=== PATIENT | female | born 1960 | race African-American/Black ===

== ENCOUNTER 2020-02-14 10:28 | Inpatient (IN) | payer MEDICARE ==
[~2020-02-14] VITALS: Ht 175.3 cm; Wt 134.3 kg
[~2020-02-14 10:28] MED LIST: ACETAMINOPHEN325 M1 PO; ARTIFICIAL TEAR15 M1 OPHTHALMIC; EUCERIN CREME57 GM; LOTREL 10-20 M1 EACH PO; VANCOMYCIN PO; ZANTAC 150MG T150 MG PO
[2020-02-14 10:40] VITALS: BP 138/88
[2020-02-14 11:09] LABS: ABSOLUTE EOSINOPHILS 0.1 thou/uL (0.0-0.7); ABSOLUTE LYMPHOCYTES 1.7 thou/uL (0.8-5.3); ABSOLUTE MONOCYTES 0.5 thou/uL (0.0-1.2); ABSOLUTE NEUTROPHILS 5.8 thou/uL (1.6-8.1); BASOPHILS 0.5 %; EOSINOPHILS 0.8 %; HEMATOCRIT 41.1 % (37.0-47.0); HEMOGLOBIN 13.7 gm/dL (12.0-15.0); LYMPHOCYTES 21.1 %; MCH 28.7 pg (26.0-34.0); MCHC 33.3 g/dL (28.0-37.0); MCV 86.1 fL (80.0-100.0); MONOCYTES 6.7 %; MPV 7.7 fl. (7.2-11.1); NUCLEATED RBCS 0 /100WBC; PLATELET COUNT* 303 thou/uL (150-400); POLYS 70.9 %; RBC 4.77 mil/uL (4.20-5.00); RDW-CV 15.2 % (10.5-14.5); WBC 8.1 thou/uL (4.0-11.0)
[2020-02-14 11:20] LABS: CALCIUM 8.5 mg/dL (8.5-10.1); CREATININE 0.9 mg/dL (0.6-1.3); POTASSIUM 4.1 mmol/L (3.5-5.1)
[2020-02-14 11:24] LABS: ALBUMIN 3.5 g/dL (3.4-5.0); TOTAL BILIRUBIN 0.3 mg/dL (<0.1-1.0); TOTAL PROTEIN 7.8 g/dL (6.4-8.2)
[2020-02-14] MEDS ORDERED: ROBITUSSIN15 MG/5 ML PO (12:00)
[2020-02-14] MEDS ORDERED: OMEPRAZOLE 20 M20 M1 PO (12:00)
[2020-02-14] MEDS ORDERED: TESSALON PERLE100 MG PO (12:00)
[2020-02-14] MEDS ORDERED: SINGULAIR 10 MG10 M1 PO (12:00)
[2020-02-14] MEDS ORDERED: NEURONTIN 300M300 M2 PO (12:00)
[2020-02-14] MEDS ORDERED: PROAIR HFA8.5 GM INH (12:01)
[2020-02-14] MEDS ORDERED: SYMBICORT160 MCG/4. INH (12:01)
[2020-02-14] MEDS ORDERED: GENTEAL TEARS 015 M1 (12:01)
[2020-02-14] MEDS ORDERED: VITAMIN D21250 MC1 PO (12:01)
[2020-02-14] MEDS ORDERED: SUPER MULTIPLE1 EACH PO (12:02)
[2020-02-14 12:16] LABS: URINE BILIRUBIN NEGATIVE (Negative); URINE BLOOD NEGATIVE (Negative); URINE CLARITY CLEAR; URINE COLOR YELLOW; URINE GLUCOSE-RANDOM NEGATIVE (Negative); URINE KETONES NEGATIVE (Negative); URINE LEUKOCYTES-REFLEX NEGATIVE (Negative); URINE NITRITE-REFLEX NEGATIVE (Negative); URINE PROTEIN NEGATIVE (Negative); URINE UROBILINOGEN 0.2 E.U./dl (0.2-1.0)
[2020-02-14 12:22] VITALS: BP 155/78
[2020-02-14 12:28] LABS: ESR (SEDRATE) 20 mm/hr (0-30)
[2020-02-14 12:37] LABS: INFLUENZA A ANTIGEN Negative (Negative); INFLUENZA B ANTIGEN Negative (Negative)
[2020-02-14 15:14] VITALS: BP 134/80
[2020-02-14 15:14] LABS: CHOLESTEROL 229 mg/dL (<200); HDL CHOLESTEROL 56 mg/dL (>40); LDL CHOLESTEROL 161 mg/dL (<100); SERUM ASSESSMENT Clear; TC:HDL 4.1 Ratio (Not establshd); TRIGLYCERIDE 61 mg/dL (<150); VLDL 12 mg/dL (<40)
[2020-02-14 15:17] LABS: AMP/METHAMP Negative (Negative); BARBITURATES Negative (Negative); BENZODIAZEPINES Negative (Negative); COCAINE Negative (Negative); METHADONE Negative (Negative); OPIATES Negative (Negative); PCP Negative (Negative); THC Negative (Negative)
[2020-02-14 15:34] VITALS: BP 158/87
--- NOTE | 2020-02-14 15:40 | EKG ---
[place] [address] ELECTROCARDIOGRAM REPORT Name: GLADYS MARQUEZ Room: [address] [place] .R.#: [id number] Admission: 02/14/20 Attend Phys: Celena grant Sa Discharge: Date of : 60 Date of Service: 02/14/20 1125 Report #: [id number] THIS REPORT FOR: //name// [facility] ED Test Date: 2020-02-14 Test Time: 11:25:47 Pat Name: GLADYS MARQUEZ Department: Room: [facility] Gender: F Coat Padder: [facility] : 1960 Requested By: Kaitlin Garcia Order Number: [id number] MD: Johann Mccallum Measurements Intervals Mcintosh Rate: 66 P: -1 DC: 193 QRS: 45 QRSD: 82 T: 44 QT: 392 QTc: 411 Interpretive Statements Sinus rhythm Baseline wander in lead(s) V5 Compared to ECG 12/04/2013 09:14:02 No significant changes Electronically Signed On 02-14-2020 15:39:17 CDT by Johann Mccallum [email or web address] <ELECTRONICALLY SIGNED> By: Johann Mccallum MD, [facility] 02/14/20 1539 1125 1125 Johann Mccallum MD, [facility] /EPI
[2020-02-14] MEDS ORDERED: GUAIFEN-CODEINE10 ML PO (15:50)
[2020-02-14 20:00] VITALS: BP 155/80
[2020-02-15 00:12] VITALS: BP 135/79
[2020-02-15 02:07] LABS: GLYCOHEMOGLOBIN (HGB A1C) 5.6 % (4.8-5.6)
[2020-02-15 04:13] VITALS: BP 142/83
[2020-02-15 05:35] LABS: HEMATOCRIT 38.4 % (37.0-47.0); HEMOGLOBIN 12.4 gm/dL (12.0-15.0); MCH 28.1 pg (26.0-34.0); MCHC 32.3 g/dL (28.0-37.0); MCV 86.8 fL (80.0-100.0); RBC 4.42 mil/uL (4.20-5.00); RDW-CV 15.6 % (10.5-14.5); WBC 8.1 thou/uL (4.0-11.0)
[2020-02-15 05:42] LABS: ALBUMIN 3.1 g/dL (3.4-5.0); CALCIUM 8.1 mg/dL (8.5-10.1); CREATININE 0.8 mg/dL (0.6-1.3); MAGNESIUM 2.2 mg/dL (1.8-2.4); PHOSPHORUS* 2.9 mg/dL (2.5-4.9); POTASSIUM 4.5 mmol/L (3.5-5.1)
[2020-02-15 08:00] VITALS: BP 144/74
[2020-02-15 12:22] VITALS: BP 149/77
--- NOTE | 2020-02-15 13:08 | 2DMMODE ---
[place] [address] 2 D/M-MODE ECHOCARDIOGRAM Name: GLADYS MARQUEZ Room: [address] [place] Kelly#: [id number] Admission: 02/14/20 Attend Phys: Celena grant Sa Discharge: Date of : 60 Date of Service: 02/15/20 1307 Report #: [id number] THIS REPORT FOR: cc: JODIE - Belkis family physician/PCP JODIE - Belkis family physician/PCP Johann Mccallum MD [facility] ~ APPROVED REPORT Study performed: 02/15/2020 09:34:05 EXAM: Comprehensive 2D, Doppler, and color-flow Echocardiogram Patient Location: In-Patient Room #: 224 Status: routine BSA: 2.39 HR: 74 bpm BP: 142/83 mmHg Rhythm: NSR Other Information Study Quality: Good Indications CVA/TIA Echo Enhancing Agent Indication: Rule out Shunt Agent(s) / Amount(s) Used: Agitated Saline 10 cc 2D Dimensions IVSd: 11.58 (7-11mm) LVOT Diam: 21.88 (18-24mm) LVDd: 39.41 mm PWd: 9.46 (7-11mm) Ascending Ao: 28.10 (22-36mm) LVDs: 22.96 (25-40mm) Aortic Root: 34.88 mm Volumes Left Atrial Volume (Systole) LA ESV Index: 18.20 mL/m2 Aortic Valve AoV Peak Jose.: 1.25 m/s AO Peak Gr.: 6.22 mmHg LVOT Max P.25 mmHg AO Mean Gr.: 3.04 mmHg LVOT Mean P.33 [place] [address] 2 D/M-MODE ECHOCARDIOGRAM Name: GLADYS MARQUEZ Room: [address] [place] M.R.#: [id number] Admission: 02/14/20 Attend Phys: Celena grant Sa Discharge: Date of : 60 Date of Service: 02/15/20 1307 Report #: [id number] LVOT Max V: 1.15 m/s AO V2 VTI: 23.98 cm LVOT Mean V: 0.69 m/s CAMILA (VTI): 3.80 cm2 LVOT V1 VTI: 24.23 cm Mitral Valve E/A Ratio: 0.87 MV Decel. Time: 252.78 ms MV E Max Jose.: 0.67 m/s MV PHT: 73.31 ms MVA (PHT): 3.00 cm2 TDI E/Lateral E': 5.58 E/Medial E': 6.09 Medial E' Jose.: 0.11 m/s Lateral E' Jose.: 0.12 m/s Pulmonary Valve PV Peak Jose.: 0.90 m/s PV Peak Gr.: 3.27 mmHg Left Ventricle The left ventricle is normal size. There is normal LV segmental wall motion. There is normal left ventricular wall thickness. Left ventricular systolic function is normal. The left ventricular ejection fraction is within the normal range. LVEF is 60-65%. Grade I - abnormal relaxation pattern. Right Ventricle The right ventricle is normal size. The right ventricular systolic function is normal. Atria The left atrium size is normal. Bubble study revealed no shunting of the microcavitations. The right atrium size is normal. Aortic Valve The aortic valve is normal in structure. No aortic regurgitation is present. There is no aortic valvular stenosis. Mitral Valve The mitral valve is normal in structure. Trace mitral regurgitation. No evidence of mitral valve stenosis. Tricuspid Valve The tricuspid valve is normal in structure. Trace tricuspid regurgitation. [place] [address] 2 D/M-MODE ECHOCARDIOGRAM Name: ALMAGLADYS Renea Room: [address] [place] .#: [id number] Admission: 02/14/20 Attend Phys: Celena grant Sa Discharge: Date of : 60 Date of Service: 02/15/20 1307 Report #: [id number] Pulmonic Valve The pulmonary valve is normal in structure. Trace pulmonic regurgitation. Great Vessels The aortic root is normal in size. IVC is normal in size and collapses >50% with inspiration. Pericardium There is no pericardial effusion. <Conclusion> The left ventricle is normal size. There is normal left ventricular wall thickness. Left ventricular systolic function is normal. The left ventricular ejection fraction is within the normal range. LVEF is 60-65%. Grade I - abnormal relaxation pattern. The right ventricle is normal size. The left atrium size is normal. The aortic valve is normal in structure. The mitral valve is normal in structure. The tricuspid valve is normal in structure. IVC is normal in size and collapses >50% with inspiration. There is no pericardial effusion. There is normal LV segmental wall motion. Bubble study revealed no shunting of the microcavitations. <ELECTRONICALLY SIGNED> By: Johann Mccallum MD, FACC 02/15/20 1307 1307 1307 Johann Mccallum MD, FACC /INF
[2020-02-15 15:57] VITALS: BP 144/74
[2020-02-15 20:10] VITALS: BP 155/73
[2020-02-16] VITALS (13 sets, daily range): BP systolic 99–149; BP diastolic 54–84
[2020-02-16] MEDS ORDERED: LIPITOR40 MG PO (13:30)
[2020-02-16] MEDS ORDERED: LEVO-T100 MCG PO (13:35)
== END 2020-02-16 16:47 | disposition home health service (06) | DRG 103 ==
LOC: M.ERS 10:28 → M.2W 13:07 → M.TBA-ER 13:07 → M.2W 15:33
PROVIDERS: Nurse Practitioner Family; ADMIT Family Medicine
DX: G43.909 Migraine, unspecified, not intractable, without status migrainosus (principal); Z68.41 Body mass index [BMI] 40.0-44.9, adult; J45.909 Unspecified asthma, uncomplicated; M79.7 Fibromyalgia; G89.29 Other chronic pain; E66.9 Obesity, unspecified; Z88.2 Allergy status to sulfonamides; Z82.3 Family history of stroke; Z79.899 Other long term (current) drug therapy